=== PATIENT | female | born 1960 | race Caucasian/White ===

== ENCOUNTER 2016-11-28 10:10 | Inpatient (IN) | payer MEDICAID, MEDICARE ==
[~2016-11-28] VITALS: Ht 172.7 cm; Wt 91.4 kg
[2016-11-28] MEDS ORDERED: SODIUM CHLORIDE 0.9% 1,000ML IVBOLUS ONE ×2 (11:00→12:00)
[2016-11-28 11:01] LABS: PH, VENOUS 7.276 pH (7.320-7.420)
[2016-11-28 11:03] LABS: HEMOGLOBIN 13.9 g/dL (11.7-16.4)
[2016-11-28 11:14] LABS: BLOOD UREA NITROGEN 32 mg/dL (7-18)
[2016-11-28 11:19] LABS: ASPARTATE AMINO TRANSFERASE 28 U/L (15-37)
[2016-11-28] MEDS ORDERED: ASPIRIN 81 MG TABLET CHEW PO ONE (12:00)
[2016-11-28] MEDS ORDERED: SODIUM CHLORIDE 0.9% 1,000 ML IV ONE (12:42)
[2016-11-28] MEDS ORDERED: ASPIRIN 81 MG TABLET CHEW ONE (12:56)
[2016-11-28] MEDS: SODIUM CHLORIDE 0.9% 1,000 ML IV SCH ×2 (13:11→22:09)
[2016-11-28] MEDS ORDERED: DEXTROSE 50%, 50ML SYRINGE IVPush PRN (13:30)
[2016-11-28] MEDS ORDERED: DOCUSATE 100 MG CAPSULE PO PRN (13:30)
[2016-11-28] MEDS ORDERED: GLUCAGON 1 MG IM PRN (13:30)
[2016-11-28] MEDS: NICOTINE 21 MG/24 HR PATCH.TD24 TD SCH (13:30)
[2016-11-28] MEDS ORDERED: LABETALOL 5MG/ML, 20ML IV PRN (13:30)
[2016-11-28] MEDS ORDERED: POLYETHYLENE GLYCOL 17 GM PACKET PO PRN (13:30)
[2016-11-28] MEDS ORDERED: hydrALAzine 20 MG/ML, 1ML IV PRN (13:30)
[2016-11-28] MEDS ORDERED: ASPIRIN 325 MG TABLET EC PO ONE (13:30)
[2016-11-28] MEDS ORDERED: DEXTROSE 4 GM TAB.CHEW PO PRN (13:30)
[2016-11-28] MEDS ORDERED: SODIUM CHLORIDE FLUSH 10ML SYR IVF ONE (14:00)
[2016-11-28 14:07] LABS: IS PT STATUS REG ER OR PRE ER? NO
[2016-11-28 14:31] VITALS: BP 147/106
[2016-11-28 14:32] VITALS: BP 147/106
[2016-11-28] MEDS: HEPARIN 5,000 UNITS/ML, 1ML SQ SCH ×2 (14:33→22:06)
[2016-11-28] MEDS: HYDROcodone/APAP 5/325 TABLET PO PRN (16:40)
[2016-11-28] MEDS: INSULIN DETEMIR 100 UNITS/ML, PEN SQ-INSULIN SCH (16:41)
[2016-11-28] MEDS: INSULIN ASPART 100 UNITS/ML, PEN SQ-INSULIN SCH ×2 (16:41→22:06)
[2016-11-28] MEDS ORDERED: LABETALOL 100 MG TABLET PO SCH (18:00)
[2016-11-28] MEDS: ONDANSETRON 2MG/ML, 2ML IVP PRN (18:17)
[2016-11-28 18:47] LABS: DAU SCREEN DISCLAIMER
[2016-11-28 19:54] LABS: IS PT STATUS REG ER OR PRE ER? NO
[2016-11-28 20:00] VITALS: BP 134/72
[2016-11-28] MEDS: PROMETHAZINE 25 MG/ML, 1ML IM PRN (20:43)
[2016-11-28] MEDS: SODIUM CHLORIDE FLUSH 10ML SYR IVF SCH (21:00)
[2016-11-29] MEDS: ONDANSETRON 2MG/ML, 2ML IVP PRN ×2 (00:27→09:46)
[2016-11-29] MEDS: PROMETHAZINE 25 MG/ML, 1ML IM PRN ×2 (01:06→05:51)
[2016-11-29 02:00] VITALS: BP 137/83
[2016-11-29 02:00] LABS: HEMOGLOBIN 12.1 g/dL (11.7-16.4)
[2016-11-29 02:14] LABS: BLOOD UREA NITROGEN 39 mg/dL (7-18)
[2016-11-29 02:22] LABS: ASPARTATE AMINO TRANSFERASE 22 U/L (15-37)
[2016-11-29 02:32] LABS: IS PT STATUS REG ER OR PRE ER? NO
[2016-11-29] MEDS: SODIUM CHLORIDE 0.9% 1,000 ML IV SCH ×2 (05:24→16:23)
[2016-11-29] MEDS: HEPARIN 5,000 UNITS/ML, 1ML SQ SCH ×3 (05:24→21:30)
[2016-11-29] MEDS: INSULIN DETEMIR 100 UNITS/ML, PEN SQ-INSULIN SCH ×2 (05:36→16:31)
[2016-11-29] MEDS: ASPIRIN 325 MG TABLET EC PO SCH (05:43)
[2016-11-29] MEDS: INSULIN ASPART 100 UNITS/ML, PEN SQ-INSULIN SCH ×4 (07:00→20:10)
[2016-11-29 07:46] VITALS: BP 134/86
[2016-11-29 09:00] LABS: IS PT STATUS REG ER OR PRE ER? NO
[2016-11-29] MEDS ORDERED: MAGNESIUM SULFATE PMX 4GM/100M 100 ML IV ONE (09:00)
[2016-11-29] MEDS: SODIUM CHLORIDE FLUSH 10ML SYR IVF SCH ×2 (09:00→20:08)
[2016-11-29] MEDS: NICOTINE 21 MG/24 HR PATCH.TD24 TD SCH (13:30)
[2016-11-29 14:09] VITALS: BP 135/83
[2016-11-29 14:24] LABS: IS PT STATUS REG ER OR PRE ER? YES
[2016-11-29] MEDS: CEFTRIAXONE PMX 1GM/50ML 50 ML IV SCH (14:33)
[2016-11-29] MEDS: METRONIDAZOLE PMX 500MG/100ML 100 ML IV SCH (16:23)
[2016-11-29] MEDS: CARVEDILOL 3.125 MG TABLET PO SCH (20:08)
[2016-11-29] MEDS: SIMVASTATIN 10 MG TABLET PO SCH (20:08)
[2016-11-29 20:11] LABS: IS PT STATUS REG ER OR PRE ER? NO
[2016-11-29 20:14] VITALS: BP 130/78
[2016-11-30] MEDS: METRONIDAZOLE PMX 500MG/100ML 100 ML IV SCH ×3 (00:52→17:45)
[2016-11-30] MEDS: SODIUM CHLORIDE 0.9% 1,000 ML IV SCH ×3 (00:56→23:38)
[2016-11-30] MEDS: HYDROcodone/APAP 5/325 TABLET PO PRN ×4 (01:55→20:43)
[2016-11-30] MEDS: HEPARIN 5,000 UNITS/ML, 1ML SQ SCH ×3 (01:55→17:51)
[2016-11-30 02:00] VITALS: BP 122/80
[2016-11-30] MEDS: INSULIN DETEMIR 100 UNITS/ML, PEN SQ-INSULIN SCH ×2 (04:37→17:43)
[2016-11-30] MEDS: CARVEDILOL 3.125 MG TABLET PO SCH ×2 (05:26→17:47)
[2016-11-30] MEDS: ASPIRIN 325 MG TABLET EC PO SCH (05:26)
[2016-11-30 06:23] LABS: HEMOGLOBIN 11.2 g/dL (11.7-16.4)
[2016-11-30 06:48] LABS: ASPARTATE AMINO TRANSFERASE 21 U/L (15-37); BLOOD UREA NITROGEN 41 mg/dL (7-18)
[2016-11-30 07:58] VITALS: BP 130/89
[2016-11-30] MEDS: INSULIN ASPART 100 UNITS/ML, PEN SQ-INSULIN SCH ×4 (08:22→20:44)
[2016-11-30] MEDS: SODIUM CHLORIDE FLUSH 10ML SYR IVF SCH ×2 (08:24→20:44)
[2016-11-30] MEDS: CEFTRIAXONE PMX 1GM/50ML 50 ML IV SCH (10:17)
[2016-11-30] MEDS: NICOTINE 21 MG/24 HR PATCH.TD24 TD SCH (13:30)
[2016-11-30 19:48] VITALS: BP 146/99
[2016-11-30] MEDS: SIMVASTATIN 10 MG TABLET PO SCH (20:43)
[2016-11-30] MEDS ORDERED: MAGNESIUM SULFATE PMX 2GM/50ML 50 ML IV ONE (23:30)
[2016-12-01 00:05] VITALS: BP 118/76
[2016-12-01] MEDS: METRONIDAZOLE PMX 500MG/100ML 100 ML IV SCH ×3 (02:30→17:28)
[2016-12-01] MEDS: HEPARIN 5,000 UNITS/ML, 1ML SQ SCH ×3 (02:31→18:39)
[2016-12-01 04:20] VITALS: BP 125/83
[2016-12-01] MEDS: ASPIRIN 325 MG TABLET EC PO SCH (05:22)
[2016-12-01] MEDS: CARVEDILOL 3.125 MG TABLET PO SCH ×2 (05:22→17:29)
[2016-12-01] MEDS: INSULIN ASPART 100 UNITS/ML, PEN SQ-INSULIN SCH ×4 (07:00→20:16)
[2016-12-01] MEDS: INSULIN DETEMIR 100 UNITS/ML, PEN SQ-INSULIN SCH ×2 (07:00→20:09)
[2016-12-01 07:58] VITALS: BP 132/88
[2016-12-01] MEDS: SODIUM CHLORIDE FLUSH 10ML SYR IVF SCH ×2 (08:50→20:10)
[2016-12-01 10:38] LABS: HEMOGLOBIN 11.8 g/dL (11.7-16.4)
[2016-12-01] MEDS: CEFTRIAXONE PMX 1GM/50ML 50 ML IV SCH (10:43)
[2016-12-01 10:45] LABS: BLOOD UREA NITROGEN 41 mg/dL (7-18)
[2016-12-01] MEDS ORDERED: ZIPRASIDONE 20 MG INJ IM ONE (12:30)
[2016-12-01] MEDS: NICOTINE 21 MG/24 HR PATCH.TD24 TD SCH (13:30)
[2016-12-01 13:57] VITALS: BP 145/83
[2016-12-01] MEDS: SODIUM CHLORIDE 0.9% 1,000 ML IV SCH (16:13)
[2016-12-01] MEDS: HYDROcodone/APAP 5/325 TABLET PO PRN (19:59)
[2016-12-01] MEDS: SIMVASTATIN 10 MG TABLET PO SCH (20:16)
[2016-12-01 20:29] VITALS: BP 145/93
[2016-12-02] MEDS: METRONIDAZOLE PMX 500MG/100ML 100 ML IV SCH ×3 (01:11→16:43)
[2016-12-02] MEDS: SODIUM CHLORIDE 0.9% 1,000 ML IV SCH (01:11)
[2016-12-02 01:54] VITALS: BP 134/88
[2016-12-02] MEDS: HEPARIN 5,000 UNITS/ML, 1ML SQ SCH ×3 (02:04→18:08)
[2016-12-02] MEDS: ACETAMINOPHEN 325 MG TABLET PO PRN (04:12)
[2016-12-02 04:40] VITALS: BP 144/88
[2016-12-02] MEDS: ASPIRIN 325 MG TABLET EC PO SCH (05:11)
[2016-12-02] MEDS: CARVEDILOL 3.125 MG TABLET PO SCH ×2 (05:11→18:08)
[2016-12-02 06:30] LABS: HEMOGLOBIN 11.7 g/dL (11.7-16.4)
[2016-12-02 07:57] VITALS: BP 135/87
[2016-12-02 08:28] LABS: BLOOD UREA NITROGEN 39 mg/dL (7-18)
[2016-12-02] MEDS: INSULIN DETEMIR 100 UNITS/ML, PEN SQ-INSULIN SCH ×2 (08:35→21:50)
[2016-12-02] MEDS: INSULIN ASPART 100 UNITS/ML, PEN SQ-INSULIN SCH ×4 (08:36→21:51)
[2016-12-02] MEDS: SODIUM CHLORIDE FLUSH 10ML SYR IVF SCH ×2 (08:36→21:50)
[2016-12-02] MEDS: CEFTRIAXONE PMX 1GM/50ML 50 ML IV SCH (10:28)
[2016-12-02] MEDS: HYDROcodone/APAP 5/325 TABLET PO PRN ×3 (11:28→21:51)
[2016-12-02] MEDS ORDERED: FUROSEMIDE 20 MG/2 ML IV ONE (14:00)
[2016-12-02 14:33] VITALS: BP 140/91
[2016-12-02] MEDS: NICOTINE 21 MG/24 HR PATCH.TD24 TD SCH (15:27)
[2016-12-02] MEDS: ONDANSETRON 2MG/ML, 2ML IVP PRN (19:17)
[2016-12-02 20:03] VITALS: BP 127/85
[2016-12-02] MEDS: SIMVASTATIN 10 MG TABLET PO SCH (21:50)
[2016-12-03] MEDS: METRONIDAZOLE PMX 500MG/100ML 100 ML IV SCH ×3 (01:40→17:19)
[2016-12-03] MEDS: HEPARIN 5,000 UNITS/ML, 1ML SQ SCH ×3 (01:41→17:19)
[2016-12-03 02:22] VITALS: BP 149/90
[2016-12-03] MEDS: HYDROcodone/APAP 5/325 TABLET PO PRN ×2 (05:35→23:56)
[2016-12-03] MEDS: ASPIRIN 325 MG TABLET EC PO SCH (05:35)
[2016-12-03] MEDS: CARVEDILOL 3.125 MG TABLET PO SCH ×2 (05:36→17:19)
[2016-12-03 06:06] LABS: HEMOGLOBIN 12.9 g/dL (11.7-16.4)
[2016-12-03 06:19] LABS: BLOOD UREA NITROGEN 40 mg/dL (7-18)
[2016-12-03 08:14] VITALS: BP 142/84
[2016-12-03] MEDS: INSULIN DETEMIR 100 UNITS/ML, PEN SQ-INSULIN SCH ×2 (08:34→21:53)
[2016-12-03] MEDS: INSULIN ASPART 100 UNITS/ML, PEN SQ-INSULIN SCH ×4 (08:35→21:53)
[2016-12-03] MEDS: FUROSEMIDE 20 MG/2 ML IV SCH (08:37)
[2016-12-03] MEDS: SODIUM CHLORIDE FLUSH 10ML SYR IVF SCH ×2 (08:37→21:53)
[2016-12-03] MEDS: CEFTRIAXONE PMX 1GM/50ML 50 ML IV SCH (13:05)
[2016-12-03 13:26] VITALS: BP 139/89
[2016-12-03] MEDS: NICOTINE 21 MG/24 HR PATCH.TD24 TD SCH (13:41)
[2016-12-03] MEDS ORDERED: OPIUM/BELLADONNA SUPP.RECT 16.2-30 MG PR PRN (16:00)
[2016-12-03] MEDS: ONDANSETRON 2MG/ML, 2ML IVP PRN (18:06)
[2016-12-03] MEDS: ZIPRASIDONE 20 MG INJ IM PRN (18:07)
[2016-12-03 20:23] VITALS: BP 148/98
[2016-12-03] MEDS: SIMVASTATIN 10 MG TABLET PO SCH (21:53)
[2016-12-04] MEDS: METRONIDAZOLE PMX 500MG/100ML 100 ML IV SCH ×3 (01:07→18:16)
[2016-12-04] MEDS: HEPARIN 5,000 UNITS/ML, 1ML SQ SCH ×3 (01:07→18:19)
[2016-12-04 02:16] VITALS: BP 138/95
[2016-12-04] MEDS: CARVEDILOL 3.125 MG TABLET PO SCH ×2 (05:09→18:00)
[2016-12-04] MEDS: ASPIRIN 325 MG TABLET EC PO SCH (05:09)
[2016-12-04] MEDS: INSULIN ASPART 100 UNITS/ML, PEN SQ-INSULIN SCH ×4 (07:00→21:00)
[2016-12-04 07:21] LABS: HEMOGLOBIN 12.8 g/dL (11.7-16.4)
[2016-12-04 07:34] VITALS: BP 135/92
[2016-12-04 07:34] LABS: BLOOD UREA NITROGEN 38 mg/dL (7-18)
[2016-12-04] MEDS: SODIUM CHLORIDE FLUSH 10ML SYR IVF SCH ×2 (09:00→22:50)
[2016-12-04] MEDS: FUROSEMIDE 20 MG/2 ML IV SCH (11:26)
[2016-12-04] MEDS: INSULIN DETEMIR 100 UNITS/ML, PEN SQ-INSULIN SCH ×2 (11:27→23:04)
[2016-12-04 12:51] VITALS: BP 132/90
[2016-12-04] MEDS: NICOTINE 21 MG/24 HR PATCH.TD24 TD SCH (13:30)
[2016-12-04] MEDS: CEFTRIAXONE PMX 1GM/50ML 50 ML IV SCH (13:32)
[2016-12-04] MEDS: ZIPRASIDONE 20 MG INJ IM PRN ×2 (15:31→23:04)
[2016-12-04 18:54] VITALS: BP 147/100
[2016-12-04] MEDS: SIMVASTATIN 10 MG TABLET PO SCH (21:00)
[2016-12-05] MEDS: METRONIDAZOLE PMX 500MG/100ML 100 ML IV SCH ×3 (01:06→17:19)
[2016-12-05] MEDS: HEPARIN 5,000 UNITS/ML, 1ML SQ SCH ×3 (01:07→18:07)
[2016-12-05 02:06] VITALS: BP 145/99
[2016-12-05 05:17] LABS: BLOOD UREA NITROGEN 34 mg/dL (7-18)
[2016-12-05] MEDS: ASPIRIN 325 MG TABLET EC PO SCH (06:00)
[2016-12-05] MEDS: CARVEDILOL 3.125 MG TABLET PO SCH ×2 (06:00→17:22)
[2016-12-05] MEDS: INSULIN ASPART 100 UNITS/ML, PEN SQ-INSULIN SCH ×4 (07:00→21:00)
[2016-12-05 07:10] VITALS: BP 142/96
[2016-12-05] MEDS: LISINOPRIL 5 MG TABLET PO SCH (08:10)
[2016-12-05] MEDS: FUROSEMIDE 20 MG/2 ML IV SCH (09:36)
[2016-12-05] MEDS: SODIUM CHLORIDE FLUSH 10ML SYR IVF SCH ×2 (09:37→20:50)
[2016-12-05] MEDS: INSULIN DETEMIR 100 UNITS/ML, PEN SQ-INSULIN SCH (11:21)
[2016-12-05] MEDS: ONDANSETRON 2MG/ML, 2ML IVP PRN (12:31)
[2016-12-05] MEDS: CEFTRIAXONE PMX 1GM/50ML 50 ML IV SCH (12:41)
[2016-12-05] MEDS: NICOTINE 21 MG/24 HR PATCH.TD24 TD SCH (12:41)
[2016-12-05 13:22] VITALS: BP 148/94
[2016-12-05 18:57] VITALS: BP 144/90
[2016-12-05] MEDS: HYDROcodone/APAP 5/325 TABLET PO PRN (20:45)
[2016-12-05] MEDS: SIMVASTATIN 10 MG TABLET PO SCH (20:45)
[2016-12-05] MEDS: METHOCARBAMOL 750 MG TABLET PO PRN (21:45)
[2016-12-06] MEDS: METRONIDAZOLE PMX 500MG/100ML 100 ML IV SCH ×3 (00:55→17:54)
[2016-12-06] MEDS: HEPARIN 5,000 UNITS/ML, 1ML SQ SCH ×3 (00:56→18:00)
[2016-12-06] MEDS: INSULIN DETEMIR 100 UNITS/ML, PEN SQ-INSULIN SCH ×2 (00:57→14:12)
[2016-12-06 01:36] VITALS: BP 145/88
[2016-12-06] MEDS: HYDROcodone/APAP 5/325 TABLET PO PRN ×4 (02:30→20:56)
[2016-12-06] MEDS: METHOCARBAMOL 750 MG TABLET PO PRN ×3 (02:30→16:53)
[2016-12-06 05:23] LABS: HEMOGLOBIN 12.1 g/dL (11.7-16.4)
[2016-12-06 05:30] LABS: BLOOD UREA NITROGEN 34 mg/dL (7-18)
[2016-12-06] MEDS: CARVEDILOL 3.125 MG TABLET PO SCH ×2 (06:33→17:59)
[2016-12-06] MEDS: ASPIRIN 325 MG TABLET EC PO SCH (06:33)
[2016-12-06] MEDS: ONDANSETRON 2MG/ML, 2ML IVP PRN (06:39)
[2016-12-06] MEDS: INSULIN ASPART 100 UNITS/ML, PEN SQ-INSULIN SCH ×4 (07:00→20:53)
[2016-12-06 07:05] VITALS: BP 152/91
[2016-12-06] MEDS: SODIUM CHLORIDE FLUSH 10ML SYR IVF SCH ×2 (09:00→20:44)
[2016-12-06] MEDS: LISINOPRIL 5 MG TABLET PO SCH (09:26)
[2016-12-06] MEDS: ACETAMINOPHEN 325 MG TABLET PO PRN (09:26)
[2016-12-06] MEDS: FUROSEMIDE 20 MG/2 ML IV SCH (09:26)
[2016-12-06] MEDS: BISACODYL 10 MG SUPP PR PRN (09:26)
[2016-12-06 13:03] VITALS: BP 146/76
[2016-12-06] MEDS: CEFTRIAXONE PMX 1GM/50ML 50 ML IV SCH (14:09)
[2016-12-06] MEDS: NICOTINE 21 MG/24 HR PATCH.TD24 TD SCH (14:13)
[2016-12-06 14:23] VITALS: BP 156/89
[2016-12-06 19:08] VITALS: BP 122/74
[2016-12-06] MEDS: SIMVASTATIN 10 MG TABLET PO SCH (20:44)
[2016-12-07] MEDS: METRONIDAZOLE PMX 500MG/100ML 100 ML IV SCH ×3 (00:11→17:47)
[2016-12-07] MEDS: INSULIN DETEMIR 100 UNITS/ML, PEN SQ-INSULIN SCH ×2 (00:11→14:21)
[2016-12-07 01:03] VITALS: BP 142/89
[2016-12-07] MEDS: HEPARIN 5,000 UNITS/ML, 1ML SQ SCH ×3 (01:25→17:47)
[2016-12-07 06:08] LABS: BLOOD UREA NITROGEN 34 mg/dL (7-18)
[2016-12-07] MEDS: ASPIRIN 325 MG TABLET EC PO SCH (06:33)
[2016-12-07] MEDS: CARVEDILOL 3.125 MG TABLET PO SCH ×2 (06:34→17:47)
[2016-12-07] MEDS: HYDROcodone/APAP 5/325 TABLET PO PRN ×2 (06:41→20:19)
[2016-12-07 08:26] VITALS: BP 135/88
[2016-12-07] MEDS: INSULIN ASPART 100 UNITS/ML, PEN SQ-INSULIN SCH ×4 (09:04→20:19)
[2016-12-07] MEDS: FUROSEMIDE 20 MG/2 ML IV SCH (09:05)
[2016-12-07] MEDS: SODIUM CHLORIDE FLUSH 10ML SYR IVF SCH ×2 (09:05→20:19)
[2016-12-07] MEDS: LISINOPRIL 5 MG TABLET PO SCH (09:05)
[2016-12-07] MEDS: NICOTINE 21 MG/24 HR PATCH.TD24 TD SCH (14:20)
[2016-12-07] MEDS: CEFTRIAXONE PMX 1GM/50ML 50 ML IV SCH (14:21)
[2016-12-07 14:40] VITALS: BP 160/88
[2016-12-07] MEDS: ZIPRASIDONE 20 MG INJ IM PRN (15:45)
[2016-12-07 19:04] VITALS: BP 167/90
[2016-12-07] MEDS: SIMVASTATIN 10 MG TABLET PO SCH (20:18)
[2016-12-08] MEDS: ZIPRASIDONE 20 MG INJ IM PRN ×3 (01:15→20:04)
[2016-12-08] MEDS: INSULIN DETEMIR 100 UNITS/ML, PEN SQ-INSULIN SCH ×2 (01:20→12:37)
[2016-12-08] MEDS: METRONIDAZOLE PMX 500MG/100ML 100 ML IV SCH ×3 (01:20→16:38)
[2016-12-08] MEDS: HEPARIN 5,000 UNITS/ML, 1ML SQ SCH ×3 (01:20→16:39)
[2016-12-08 01:24] VITALS: BP 148/91
[2016-12-08] MEDS ORDERED: DIPHENHYDRAMINE 25 MG CAPSULE PO ONE (02:30)
[2016-12-08] MEDS: HYDROcodone/APAP 5/325 TABLET PO PRN ×2 (05:17→22:18)
[2016-12-08] MEDS: CARVEDILOL 3.125 MG TABLET PO SCH ×2 (05:17→16:39)
[2016-12-08] MEDS: ASPIRIN 325 MG TABLET EC PO SCH (05:17)
[2016-12-08] MEDS: INSULIN ASPART 100 UNITS/ML, PEN SQ-INSULIN SCH ×4 (07:00→20:04)
[2016-12-08 07:01] VITALS: BP 146/89
[2016-12-08] MEDS: SODIUM CHLORIDE FLUSH 10ML SYR IVF SCH ×2 (09:00→20:03)
[2016-12-08] MEDS: FUROSEMIDE 20 MG/2 ML IV SCH (09:14)
[2016-12-08] MEDS: LISINOPRIL 5 MG TABLET PO SCH (09:15)
[2016-12-08] MEDS: CEFTRIAXONE PMX 1GM/50ML 50 ML IV SCH (12:36)
[2016-12-08] MEDS: NICOTINE 21 MG/24 HR PATCH.TD24 TD SCH (12:37)
[2016-12-08 12:58] VITALS: BP 156/95
[2016-12-08 19:23] VITALS: BP 136/84
[2016-12-08] MEDS: SIMVASTATIN 10 MG TABLET PO SCH (20:03)
[2016-12-09 01:04] VITALS: BP 166/84
[2016-12-09] MEDS: METRONIDAZOLE PMX 500MG/100ML 100 ML IV SCH ×3 (02:27→17:14)
[2016-12-09] MEDS: HEPARIN 5,000 UNITS/ML, 1ML SQ SCH ×3 (02:27→17:14)
[2016-12-09] MEDS: INSULIN DETEMIR 100 UNITS/ML, PEN SQ-INSULIN SCH ×2 (02:29→12:04)
[2016-12-09] MEDS: HYDROcodone/APAP 5/325 TABLET PO PRN (02:53)
[2016-12-09] MEDS: ASPIRIN 325 MG TABLET EC PO SCH (05:58)
[2016-12-09] MEDS: CARVEDILOL 3.125 MG TABLET PO SCH ×2 (05:58→17:14)
[2016-12-09 06:14] LABS: BLOOD UREA NITROGEN 28 mg/dL (7-18)
[2016-12-09] MEDS: ONDANSETRON 2MG/ML, 2ML IVP PRN (06:15)
[2016-12-09] MEDS: INSULIN ASPART 100 UNITS/ML, PEN SQ-INSULIN SCH ×4 (07:00→20:30)
[2016-12-09 07:57] VITALS: BP 133/87
[2016-12-09] MEDS ORDERED: MAGNESIUM SULFATE PMX 4GM/100M 100 ML IV ONE (09:00)
[2016-12-09] MEDS: LISINOPRIL 5 MG TABLET PO SCH (09:30)
[2016-12-09] MEDS: SODIUM CHLORIDE FLUSH 10ML SYR IVF SCH ×2 (09:31→21:00)
[2016-12-09] MEDS: FUROSEMIDE 20 MG/2 ML IV SCH (09:31)
[2016-12-09] MEDS: NICOTINE 21 MG/24 HR PATCH.TD24 TD SCH (12:05)
[2016-12-09] MEDS: CEFTRIAXONE PMX 1GM/50ML 50 ML IV SCH (13:48)
[2016-12-09 13:54] VITALS: BP 130/90
[2016-12-09 20:30] VITALS: BP 139/85
[2016-12-09] MEDS: SIMVASTATIN 10 MG TABLET PO SCH (21:00)
[2016-12-10] MEDS: HYDROcodone/APAP 5/325 TABLET PO PRN ×4 (00:15→16:59)
[2016-12-10] MEDS: INSULIN DETEMIR 100 UNITS/ML, PEN SQ-INSULIN SCH ×2 (01:00→13:00)
[2016-12-10] MEDS: HEPARIN 5,000 UNITS/ML, 1ML SQ SCH ×3 (01:30→17:30)
[2016-12-10] MEDS: METRONIDAZOLE PMX 500MG/100ML 100 ML IV SCH ×3 (01:30→17:30)
[2016-12-10 02:28] VITALS: BP 133/73
[2016-12-10] MEDS: ASPIRIN 325 MG TABLET EC PO SCH (05:58)
[2016-12-10] MEDS: CARVEDILOL 3.125 MG TABLET PO SCH ×2 (05:59→17:41)
[2016-12-10] MEDS: INSULIN ASPART 100 UNITS/ML, PEN SQ-INSULIN SCH ×4 (07:00→21:00)
[2016-12-10 07:30] VITALS: BP 138/80
[2016-12-10] MEDS ORDERED: MAGNESIUM SULFATE PMX 2GM/50ML 50 ML IV ONE (08:00)
[2016-12-10] MEDS: SODIUM CHLORIDE FLUSH 10ML SYR IVF SCH ×2 (09:00→21:00)
[2016-12-10] MEDS: LISINOPRIL 5 MG TABLET PO SCH (09:00)
[2016-12-10] MEDS: FUROSEMIDE 20 MG/2 ML IV SCH (09:00)
[2016-12-10] MEDS: CEFTRIAXONE PMX 1GM/50ML 50 ML IV SCH (13:00)
[2016-12-10] MEDS: NICOTINE 21 MG/24 HR PATCH.TD24 TD SCH (13:30)
[2016-12-10 14:25] VITALS: BP 135/86
[2016-12-10 20:47] VITALS: BP 144/85
[2016-12-10] MEDS: SIMVASTATIN 10 MG TABLET PO SCH (21:00)
[2016-12-10] MEDS: ZIPRASIDONE 20 MG INJ IM PRN (22:17)
[2016-12-11] MEDS: INSULIN DETEMIR 100 UNITS/ML, PEN SQ-INSULIN SCH ×2 (01:00→13:00)
[2016-12-11] MEDS: METRONIDAZOLE PMX 500MG/100ML 100 ML IV SCH ×3 (01:30→17:30)
[2016-12-11] MEDS: HEPARIN 5,000 UNITS/ML, 1ML SQ SCH ×3 (01:30→17:30)
[2016-12-11 02:01] VITALS: BP 130/88
[2016-12-11] MEDS: HYDROcodone/APAP 5/325 TABLET PO PRN ×2 (02:29→22:00)
[2016-12-11 05:41] LABS: HEMOGLOBIN 12.4 g/dL (11.7-16.4)
[2016-12-11] MEDS: ZIPRASIDONE 20 MG INJ IM PRN ×2 (06:00→19:50)
[2016-12-11] MEDS: ASPIRIN 325 MG TABLET EC PO SCH (06:00)
[2016-12-11] MEDS: CARVEDILOL 3.125 MG TABLET PO SCH ×2 (06:00→18:00)
[2016-12-11 06:11] LABS: BLOOD UREA NITROGEN 34 mg/dL (7-18)
[2016-12-11] MEDS: INSULIN ASPART 100 UNITS/ML, PEN SQ-INSULIN SCH ×4 (07:00→20:45)
[2016-12-11 07:44] VITALS: BP 116/76
[2016-12-11] MEDS: FUROSEMIDE 20 MG/2 ML IV SCH (09:00)
[2016-12-11] MEDS: SODIUM CHLORIDE FLUSH 10ML SYR IVF SCH ×2 (09:00→19:51)
[2016-12-11] MEDS: LISINOPRIL 5 MG TABLET PO SCH (09:00)
[2016-12-11 13:04] VITALS: BP 130/78
[2016-12-11] MEDS: CEFTRIAXONE PMX 1GM/50ML 50 ML IV SCH (14:33)
[2016-12-11] MEDS: NICOTINE 21 MG/24 HR PATCH.TD24 TD SCH (14:34)
[2016-12-11] MEDS: ONDANSETRON 2MG/ML, 2ML IVP PRN (19:50)
[2016-12-11 19:58] VITALS: BP 130/84
[2016-12-11] MEDS: SIMVASTATIN 10 MG TABLET PO SCH (20:46)
[2016-12-11] MEDS: METHOCARBAMOL 750 MG TABLET PO PRN (22:00)
[2016-12-12 02:00] VITALS: BP 136/86
[2016-12-12] MEDS: ZIPRASIDONE 20 MG INJ IM PRN ×4 (02:10→22:21)
[2016-12-12] MEDS: ONDANSETRON 2MG/ML, 2ML IVP PRN ×2 (02:10→09:44)
[2016-12-12] MEDS: INSULIN DETEMIR 100 UNITS/ML, PEN SQ-INSULIN SCH ×2 (02:10→13:00)
[2016-12-12] MEDS: METRONIDAZOLE PMX 500MG/100ML 100 ML IV SCH ×2 (02:11→09:30)
[2016-12-12] MEDS: HEPARIN 5,000 UNITS/ML, 1ML SQ SCH ×3 (02:11→17:30)
[2016-12-12] MEDS: ASPIRIN 325 MG TABLET EC PO SCH (05:49)
[2016-12-12] MEDS: HYDROcodone/APAP 5/325 TABLET PO PRN ×3 (05:49→17:36)
[2016-12-12] MEDS: CARVEDILOL 3.125 MG TABLET PO SCH ×2 (05:49→17:35)
[2016-12-12] MEDS: PROMETHAZINE 25 MG/ML, 1ML IM PRN (05:49)
[2016-12-12 05:59] VITALS: BP 158/98
[2016-12-12] MEDS: INSULIN ASPART 100 UNITS/ML, PEN SQ-INSULIN SCH ×4 (07:00→21:00)
[2016-12-12 07:35] VITALS: BP 142/92
[2016-12-12] MEDS: LISINOPRIL 5 MG TABLET PO SCH (09:00)
[2016-12-12] MEDS: FUROSEMIDE 20 MG/2 ML IV SCH (09:00)
[2016-12-12] MEDS: SODIUM CHLORIDE FLUSH 10ML SYR IVF SCH ×2 (09:00→21:00)
[2016-12-12 13:02] VITALS: BP 147/88
[2016-12-12] MEDS: NICOTINE 21 MG/24 HR PATCH.TD24 TD SCH (13:30)
[2016-12-12] MEDS: METHOCARBAMOL 750 MG TABLET PO PRN (14:23)
[2016-12-12 20:18] VITALS: BP 147/96
[2016-12-12] MEDS: SIMVASTATIN 10 MG TABLET PO SCH (21:00)
[2016-12-13] MEDS: HYDROcodone/APAP 5/325 TABLET PO PRN ×2 (02:03→13:55)
[2016-12-13 02:04] VITALS: BP 154/101
[2016-12-13] MEDS: HEPARIN 5,000 UNITS/ML, 1ML SQ SCH ×2 (02:06→10:02)
[2016-12-13] MEDS: INSULIN DETEMIR 100 UNITS/ML, PEN SQ-INSULIN SCH ×2 (02:07→13:08)
[2016-12-13] MEDS: ZIPRASIDONE 20 MG INJ IM PRN ×2 (04:31→13:08)
[2016-12-13] MEDS: ASPIRIN 325 MG TABLET EC PO SCH (06:00)
[2016-12-13] MEDS: CARVEDILOL 3.125 MG TABLET PO SCH (06:00)
[2016-12-13 07:50] VITALS: BP 153/96
[2016-12-13] MEDS: INSULIN ASPART 100 UNITS/ML, PEN SQ-INSULIN SCH ×2 (08:47→13:08)
[2016-12-13] MEDS: ONDANSETRON 2MG/ML, 2ML IVP PRN (10:00)
[2016-12-13] MEDS: SODIUM CHLORIDE FLUSH 10ML SYR IVF SCH (10:01)
[2016-12-13] MEDS: FUROSEMIDE 20 MG/2 ML IV SCH (10:01)
[2016-12-13] MEDS: LISINOPRIL 5 MG TABLET PO SCH (10:02)
[2016-12-13 12:16] VITALS: BP 146/96
[2016-12-13] MEDS: BISACODYL 10 MG SUPP PR PRN (15:19)
== END 2016-12-13 17:26 | disposition hospice, home (50) | DRG 64 ==
LOC: ED 12:13 → EDIP 12:42 → 4WST 13:43
PROVIDERS: ADMIT Internal Medicine; ATTEND Internal Medicine
PROC: 0T9B70Z Drainage of Bladder with Drainage Device, Via Natural or Artificial Opening (ICD-10-PCS; principal; 2016-11-28)
DX: I63.442 Cerebral infarction due to embolism of left cerebellar artery (principal); G93.41 Metabolic encephalopathy; E43 Unspecified severe protein-calorie malnutrition; I50.21 Acute systolic (congestive) heart failure; J69.0 Pneumonitis due to inhalation of food and vomit; E87.1 Hypo-osmolality and hyponatremia; R44.3 Hallucinations, unspecified; N17.9 Acute kidney failure, unspecified; I13.0 Hypertensive heart and chronic kidney disease with heart failure and stage 1 through stage 4 chronic kidney disease, or unspecified chronic kidney disease; R41.4 Neurologic neglect syndrome; G81.91 Hemiplegia, unspecified affecting right dominant side; E11.52 Type 2 diabetes mellitus with diabetic peripheral angiopathy with gangrene; G81.94 Hemiplegia, unspecified affecting left nondominant side; I25.10 Atherosclerotic heart disease of native coronary artery without angina pectoris; F15.90 Other stimulant use, unspecified, uncomplicated; F17.210 Nicotine dependence, cigarettes, uncomplicated; N18.9 Chronic kidney disease, unspecified; R33.9 Retention of urine, unspecified; K59.00 Constipation, unspecified; R29.703 NIHSS score 3; R40.2412 Glasgow coma scale score 13-15, at arrival to emergency department; R40.2362 Coma scale, best motor response, obeys commands, at arrival to emergency department; R40.2252 Coma scale, best verbal response, oriented, at arrival to emergency department; R40.2142 Coma scale, eyes open, spontaneous, at arrival to emergency department; E83.41 Hypermagnesemia; E86.0 Dehydration; E11.22 Type 2 diabetes mellitus with diabetic chronic kidney disease; E11.21 Type 2 diabetes mellitus with diabetic nephropathy; I34.0 Nonrheumatic mitral (valve) insufficiency; I73.9 Peripheral vascular disease, unspecified; M24.549 Contracture, unspecified hand; R13.19 Other dysphagia; Z66 Do not resuscitate; Z79.82 Long term (current) use of aspirin; Z79.4 Long term (current) use of insulin; Z89.519 Acquired absence of unspecified leg below knee; Z91.14 Patient's other noncompliance with medication regimen; Z88.0 Allergy status to penicillin; Z88.2 Allergy status to sulfonamides; Z83.6 Family history of other diseases of the respiratory system; Z68.30 Body mass index [BMI] 30.0-30.9, adult
CPT/HCPCS: 36415; 36556; 70450; 70551; 71010; 74230; 76700; 80048; 80053; 80061; 80307; 81001; 82010; 82040; 82436; 82550; 82570; 82803; 82962; 83036; 83735; 83880; 84100; 84133; 84300; 84443; 84484; 85025; 93005; 93306; 93880; 93922; 93926; 96360; J0696; J1644; J1815; J2405; J2550; J3486; 92523-GN; J1940; J3475; J7030; Q0163